=== PATIENT | female | born 1980 | race Native Hawaiian/Other Pacific Islander ===

== ENCOUNTER 2025-05-04 08:01 | Day surgery (SDC) | payer OTHER, SELFPAY ==
[2025-05-04] VITALS (26 sets, daily range): BP systolic 94–134; BP diastolic 67–99; PULSE 59–77; RESP 12–18; TEMP 36.1–37.2; O2SAT 91–98; BMI 41.5
[2025-05-04 08:31] LABS: Ur HCG Qualitative* Negative (Negative)
[2025-05-04] MEDS: ACETAMINOPHEN 500 MG TABLET 1000 MG PO ×3 (08:45→21:49)
[2025-05-04] MEDS: OXYCODONE (CR) 10 MG TAB.ER.12H PO (08:45)
[2025-05-04] MEDS: SODIUM CHLORIDE 0.9 % (FLUSH) 10 ML SYRINGE IVF (08:50)
[2025-05-04] MEDS: LACTATED RINGERS 1000 ML 1,000 ML 100 ML IV ×2 (08:50→13:02)
--- NOTE | 2025-05-04 09:30 | W.PM.H&PU ---
History & Physical Update History & Physical Update H&P Reviewed and patient assessed: No changes noted
--- NOTE | 2025-05-04 09:31 | CRLHL7_ITS ---
For Patients: As a result of the Cures Act, medical imaging exams and procedure reports are released immediately into your electronic medical record. You may view this report before your referring provider. If you have questions, please contact your health care provider. Indication: RT KNEE POST OP Technique: Two views right knee Findings/Impression: Hardware from a right total knee arthroplasty is in satisfactory position. Bone alignment is normal. No sign of acute fracture. Postop changes are within normal limits. Dictated by Joe Jacob MD @ 05/04/2025 3:27:52 PM (Electronically Signed)
[2025-05-04] MEDS: MIDAZOLAM HCL 1 MG/ML inj IVP (10:02)
--- NOTE | 2025-05-04 10:04 | SUR.PREOP ---
TIME?OUT:?1000 PT/RN/MDA?VERIFICATION?OF?SURGICAL?SITE,?PROCEDURE,?AND?CONSENT OBTAINED?PRIOR?TO?INVASIVE?PROCEDURE.
--- NOTE | 2025-05-04 10:33 | P.ANES_ITS ---
Anesthesia Charges Start Date/Time Anesthesia Start Date: 05/04/25 Anesthesia Start Time: 10:30 Stop Date/Time Anesthesia Stop Date: 05/04/25 Anesthesia Stop Time: 12:46 Coding CPT Codes CPT Codes: ANESTH KNEE ARTHROPLASTY - 26116 ([id number]) P3 - PATIENT W/SEVERE SYS DISEASE, QK - OBSTETRICIAN 2-4 CNCRNT ANES PROC, QX - CLERICAL WAREHOUSEMAN SVC W/ MD MED DIRECTION
--- NOTE | 2025-05-04 10:33 | W.ANESCHARGE ---
Anesthesia Charges Start Date/Time Anesthesia Start Date: 05/04/25 Anesthesia Start Time: 10:30 Stop Date/Time Anesthesia Stop Date: 05/04/25 Anesthesia Stop Time: 12:46 Coding CPT Codes CPT Codes: ANESTH KNEE ARTHROPLASTY - 55264 ([id number]) P3 - PATIENT W/SEVERE SYS DISEASE, QK - CARPET INSPECTOR FINISHED 2-4 CNCRNT ANES PROC, QX - GERICARE AIDE SVC W/ MD MED DIRECTION
--- NOTE | 2025-05-04 10:33 | W.PM.NB ---
Nerve Block Nerve Block Time Seen by Provider: 10:00 Date Seen: 05/04/25 Type of block requested by surgeon for post-operative analgesia: adductor canal Side: right Time out performed: Yes Verification of patient name: Yes Verification of date of : Yes Site marking: site marked Name of person performing procedure: Ash Continuous monitoring Was continuous monitoring of O2 sat, B/P, quality assurance monitor body, recorded every 15 minutes?: Yes Procedure Checklist: sterile prep, needles and gloves Ultrasound guided. Images saved: Yes Medications given in 5ml increments after negative aspiration: Marcaine %: 0.25 mL: 15 Needle gauge: 20 Precedex (mcg): 25 Patient tolerated procedure well: Yes Block Charges Block Charge (with Pro Fee): Femoral Nerve Use of Ultrasound Machine for Block: Yes- US Guidance/pain block
--- NOTE | 2025-05-04 10:34 | W.PM.NB ---
Nerve Block Nerve Block Time Seen by Provider: 10:00 Date Seen: 05/04/25 Type of block requested by surgeon for post-operative analgesia: geniculars Side: right Time out performed: Yes Verification of patient name: Yes Verification of date of : Yes Site marking: site marked Name of person performing procedure: Ash Continuous monitoring Was continuous monitoring of O2 sat, B/P, control director, recorded every 15 minutes?: Yes Procedure Checklist: sterile prep, needles and gloves Ultrasound guided. Images saved: Yes Medications given in 5ml increments after negative aspiration: Marcaine %: 0.25 mL: 9 Needle gauge: 25 Patient tolerated procedure well: Yes Block Charges Block Charge (with Pro Fee): Genicular Nerve Block
[2025-05-04] MEDS: TRANEXAMIC ACID 100 MG/ML INJ 1000 MG IV (10:50)
--- NOTE | 2025-05-04 12:44 | P.ANES_ITS ---
Anesthesia Charges Start Date/Time Anesthesia Start Date: 05/04/25 Anesthesia Start Time: 10:30 Stop Date/Time Anesthesia Stop Date: 05/04/25 Anesthesia Stop Time: 12:46 Coding CPT Codes CPT Codes: ANESTH KNEE ARTHROPLASTY - 50597 ([id number]) P3 - PATIENT W/SEVERE SYS DISEASE, QK - ACCOUNTING AUDITOR 2-4 CNCRNT ANES PROC, QX - SUPERVISOR OPEN HEARTH STOCKYARD SVC W/ MD MED DIRECTION
--- NOTE | 2025-05-04 12:44 | W.ANESCHARGE ---
Anesthesia Charges Start Date/Time Anesthesia Start Date: 05/04/25 Anesthesia Start Time: 10:30 Stop Date/Time Anesthesia Stop Date: 05/04/25 Anesthesia Stop Time: 12:46 Coding CPT Codes CPT Codes: ANESTH KNEE ARTHROPLASTY - 32076 ([id number]) P3 - PATIENT W/SEVERE SYS DISEASE, QK - SUEDING MACHINE OPERATOR 2-4 CNCRNT ANES PROC, QX - LINUX PROGRAMMER SVC W/ MD MED DIRECTION
--- NOTE | 2025-05-04 13:06 | SUR.PHASEI ---
Patient awake and alert, no nausea or pain, moving legs and sensation feeling normal.
--- NOTE | 2025-05-04 13:07 | SUR.PHASEI ---
Patient meets discharge criteria from PACU.
[2025-05-04] MEDS: LACTATED RINGERS 1000 ML 1,000 ML 75 ML IV (13:40)
--- NOTE | 2025-05-04 13:52 | P.ORPRC_ITS ---
Procedure Note Date of procedure: 05/04/25 Procedure: PREOPERATIVE DIAGNOSIS: 1. Right knee osteoarthritis, primary, severe POSTOPERATIVE DIAGNOSIS: 1. Right knee osteoarthritis, primary, severe PROCEDURE: 1. Right total knee arthroplasty - subvastus; limited tourniquet; cemented - of note, 33% added time and difficulty of this case including increased implant support with a revision stemmed tibial component due to morbid obesity (BMI 41.5). This also required increased number of retractors, length of retractors, and assistants. SURGEON: Nasir Cornejo MD. PERSONAL LINES APPRAISER: MATTHEW Allred - Of note, a skilled assistant professor of marine biology was critical for this case to aid in patient positioning, tissue retraction, limb manipulation/positioning, and closure. ANESTHESIA: Spinal anesthetic IMPLANTS: DePuy J&J all cemented TKA - Attune PS femur size 6 narrow Size 4 tibia ([id number] stem) 5 mm poly spacer 35 mm patella TOURNIQUET: 30 minutes at 250 torr EBL: 100 mL COMPLICATIONS: None evident INDICATIONS: The patient is a pleasant 44-year-old female who has experienced severe right knee pain and difficulty bearing weight. Workup included x-rays which revealed severe osteoarthrosis in the knee. Given the deformity, the dysfunction, and the pain, as well as the failure of nonoperative management, recommendation was made for surgery. FINDINGS: Significant genu valgum. Reducible to neutral with varus stress. Large effusion upon entering the joint. Severe osteoarthrosis especially in the lateral and patellofemoral but to a lesser degree medial compartment as well. Degenerative meniscus pathology lateral greater than medial. Hypoplastic lateral femoral condyle. DESCRIPTION OF PROCEDURE: Following a thorough discussion of risks, benefits, and alternatives consent was obtained and the right knee was marked. The pat ient was brought to the operating room and placed supine on the operating table. Induction of anesthesia was undertaken. 2 g IV Ancef and 1 g tranexamic acid was administered within 1 hr of incision preoperatively. Proper time-out was performed identifying proper patient, site, procedure. The operative extremity was prepped and draped in the appropriate sterile fashion using ChloraPrep after the patient was positioned supine with all bony prominences well padded. A longitudinal, anterior, midline skin incision was made starting approximately 3cm proximal to the superior pole of the patella and advanced distal to the tibial tubercle. A subvastus approach was utilized. A medial subperiosteal sleeve was created with knife, tai elevator and curved osteotome. The retropatellar fatpad was resected and the synovium in the suprapatellar pouch excised to visualize the anterior femoral cortex. Femoral preparation was performed via an intramedullary guide. Step drill allowed access into the femoral canal. The distal cutting guide was placed with 6? of valgus and 13 mm cut on the distal femur due to a significant valgus deformity. Femur was sized using a posterior referencing guide in 3? of external rotation after cross referencing with trans-epicondylar axis and Jeremias's line. This found have a best fit with the sizing noted above. The 4 in 1 cutting block was then placed, and the distal femur shaped accordingly. The box cut was then created and the trial implant inserted to confirm appropriate fit. We turned our attention to the proximal tibia. Intramedullary guide was utilized for cutting with the goal of being 90 degree cut from the mechanical axis of the tibia in the varus/valgus plane utilizing tibial crest as the primary alignment. Initially a 2 mm resection was performed from the lateral tibial plateau. Ultimately, balancing was achieved in both flexion and extension in both varus and valgus. The knee was able to achieve full extension as well comfortably. The patella was initially measured and found have a thickness of 24 mm. It was resected back to approximately 14 mm. It was sized to be a best fit with as noted above. This was drilled, trial placed. All trials were placed and found to have an excellent stability and balance. At this stage, trial implants were removed, the knee was thoroughly irrigated with normal saline, and the cement was mixed. After irrigation, the knee was thoroughly dried, and cement placed, with the real tibial (including 50 mm stem due to morbid obesity) and femoral implants placed along with the patella. Trial poly spacer was placed and confirmed to have excellent range of motion and full extension, and the real poly spacer opened and inserted. All extra cement was removed, and a 3 min Betadine soak performed. Finally, a final irrigation round with normal saline was performed. Closure performed with 0 Vicryl and #0 Stratafix for the quad tendon/retinaculum. 2-0 Vicryl for the subcutaneous and 4-0 Stratafix for subcuticular closure. Dressings were applied and the patient was awoken from anesthesia after the tourniquet deflated and transferred the PACU in stable condition. A skilled assistant professor of marine biology was critical for this case to aid in patient positioning, tissue retraction, bone exposure, limb manipulation/positioning, patient safety, and closure. Again, 33% added time and difficulty of this case including increased implant support with a revision stemmed tibial component due to morbid obesity (BMI 41.5). This also required increased number of retractors, length of retractors, and assistants. PLAN: 1. Weight bear as tolerated operative extremity. 2. 23 hr perioperative antibiotics. 3. Ice. 4. PT/OT consults for ambulation assistance/mobility education. 5. Social work consult for discharge planning. 6. DVT prophylaxis with at SCDs and aspirin twice daily.
--- NOTE | 2025-05-04 15:11 | PM.IMCN1 ---
Date of Consult Patient: Other Consult date: 05/04/25 Requesting Physician: Orthopedics Primary Care Provider: Daljit Sherwood MD Consult Narrative Reason for consult: Medical management of comorbidities Narrative: Amisha Almaraz is a 44 year old female who presented to the hospital today for an elective R TKA. There were no surgical or anesthetic complications noted during procedure. Patient's H&P reviewed, PCP is Dr. Sherwood at [facility] in [place]. Past medical history significant for: thyroid cancer (s/p thyroidectomy, resultant hypothyroidism), essential HTN Postoperative plan: Home with family Review of Systems Status of ROS: Reports: 10 or more systems reviewed and unremarkable except as noted in History and below [facility] Medical History (Updated 05/04/25 @ 15:25 by Lor Sterling MD) Hypothyroidism (acquired) ?E03.9 - Hypothyroidism, unspecified (ICD-10) Osteoarthritis of right knee ?M17.11 - Unilateral primary osteoarthritis, right knee (ICD-10) Neck pain with neck stiffness after whiplash injury to neck ?S13.4XXA - Sprain of ligaments of cervical spine, initial encounter (ICD-10) Blunt head trauma ?S09.8XXA - Other specified injuries of head, initial encounter (ICD-10) Chronic iron deficiency anemia (2002) ?D50.9 - Iron deficiency anemia, unspecified (ICD-10) Closed head injury ?S09.90XA - Unspecified injury of head, initial encounter (ICD-10) Concussion ?S06.0X9A - Concussion with loss of consciousness of unspecified duration, initial encounter (ICD-10) Dysmenorrhea ?N94.6 - Dysmenorrhea, unspecified (ICD-10) Depressive disorder ?F32.A - Depression, unspecified (ICD-10) Extrinsic asthma ?J45.909 - Unspecified asthma, uncomplicated (ICD-10) Anxiety ?F41.9 - Anxiety disorder, unspecified (ICD-10) Anemia ?D64.9 - Anemia, unspecified (ICD-10) Seizure (01/2021) ?R56.9 - Unspecified convulsions (ICD-10) Malignant neoplasm of thyroid gland (05/30/22) ?C73 - Malignant neoplasm of thyroid gland (ICD-10) History of migraine headaches ?Z86.69 - Personal history of other diseases of the nervous system and sense organs (ICD-10) Surgical History (Updated 05/04/25 @ 15:25 by Lor Sterling MD) Status post right knee replacement ?Z96.651 - Presence of right artificial knee joint (ICD-10) H/O total thyroidectomy ?Z98.890 - Other specified postprocedural states (ICD-10) ?Z90.89 - Acquired absence of other organs (ICD-10) History of arthroscopy of right knee (12/05/21) ?Z98.890 - Other specified postprocedural states (ICD-10) Hx of cholecystectomy ?Z90.49 - Acquired absence of other specified parts of digestive tract (ICD-10) Status post gastric bypass for obesity ?Z98.84 - Bariatric surgery status (ICD-10) Family History Other Diabetes High blood pressure Social History Narrative: Marital Status: Occupation: accounts payable clerk Alcohol Use: Yes What is your current living situation?: I presently have a place to live Problems where you live: no known problems In the past 12 months, utilities in danger of being shut off: no In past 12 months, lack of transportation kept you from medical appts, meetings, work, or getting things needed for daily living: no In the past 12 mos, have been you worried that your food would run out before you had money to buy more?: never true In the past 12 mos, the food you bought just didn't last and you didn't have money to buy more?: never true Highest level of school completed/degree received: some college, no degree Smoking Status: Never smoker Do you use any of these nicotine containing products: None Second hand tobacco smoke exposure: No How often do you have a drink containing alcohol: monthly or less Alcohol type: beer How many standard drinks containing alcohol do you have on a typical day: 1 or 2 How often do you have six or more drinks on one occasion: Never AUDIT-C Alcohol total score: 1 Non-prescribed substance use: denies use Caffeine: Yes How often does anyone, including family, friends and others, physically hurt you: never How often does anyone, including family, friends and others, insult or talk down to you: never How often does anyone, including family, friends and others, threaten you with harm: never How often does anyone, including family, friends and others, scream or curse at you: never service: No Meds Home Medications and Allergies Home Medications ?Medication ?Instructions ?Recorded ?Confirmed ?Type albuterol sulfate 90 mcg/actuation 2 inhalation Q4H PRN 12/23/21 04/17/25 History aerosol inhaler citalopram 20 mg tablet 20 mg PO DAILY 12/23/21 05/04/25 History melatonin 3 mg tablet 3 mg PO .Bedtime as needed PRN 12/23/21 05/04/25 History multivitamin 1 tab PO QAM 12/23/21 05/04/25 History levothyroxine 200 mcg tablet mcg PO DAILY 02/27/25 04/17/25 History levothyroxine 50 mcg tablet 25 - 50 mcg PO DAILY 02/27/25 05/04/25 History tirzepatide 2.5 mg/0.5 mL 2.5 mg subcut QWEEK 04/17/25 05/04/25 History subcutaneous pen injector naproxen 500 mg tablet 500 mg PO BID PRN pain 05/02/25 05/04/25 History tirzepatide (weight loss) 2.5 2.5 mg subcut QWEEK 05/02/25 05/04/25 History mg/0.5 mL subcutaneous pen injector acetaminophen 500 mg capsule 500 - 1,000 mg (1 - 2 x 500 mg) PO 05/04/25 Rx Q6H PRN pain #100 caps amlodipine 5 mg tablet 5 mg PO DAILY 05/04/25 05/04/25 History aspirin 81 mg chewable tablet 81 mg PO BID for DVT prophylaxis 05/04/25 Rx (Aspirin Childrens) 30 days #60 tabs oxycodone 5 mg tablet 2.5 - 5 mg (0.5 - 1 x 5 mg) PO 05/04/25 Rx Q4-6H PRN Pain #42 tabs sennosides 8.6 mg tablet (Senna 17.2 mg (2 x 8.6 mg) PO BID PRN 05/04/25 Rx Lax) constipation #100 tabs Allergies Allergy/AdvReac Type Severity Reaction Status Date / Time lactose Allergy Unknown Verified 05/04/25 08:22 Exam Narrative: Exam Narrative: GEN: Alert and oriented, sitting comfortably in bedside chair HEENT: EOMIs bilaterally, no scleral icterus CV: RRR, No concerning murmurs R: LCTA bilaterally Ext: Wearing bilateral SCDs Skin: No concerning skin lesions or rashes on exposed skin Neuro: Nonfocal Psych: Appropriate Const: Vital Signs, click to edit/add: Vital Signs - 24 hr 05/04/25 08:39 05/04/25 10:02 05/04/25 10:11 Temperature 97.7 F Pulse Rate 69 70 70 Pulse Rate [Right Pulse Oximeter] Respiratory Rate 16 16 16 Blood Pressure 134/94 H 129/97 H 133/99 H Blood Pressure [Le ft Arm] Pulse Oximetry 96 97 97 Oxygen Delivery Me thod Room Air Nasal Cannula Nasal Cannula Oxygen Flow Rate 2 2 05/04/25 10:15 05/04/25 10:20 05/04/25 10:25 Temperature Pulse Rate 70 70 70 Pulse Rate [Right Pulse Oximeter] Respiratory Rate 16 16 16 Blood Pressure 129/93 H 126/92 H 129/92 H Blood Pressure [Le ft Arm] Pulse Oximetry 98 98 98 Oxygen Delivery Me thod Nasal Cannula Nasal Cannula Nasal Cannula Oxygen Flow Rate 2 2 2 05/04/25 12:41 05/04/25 12:45 05/04/25 12:50 Temperature 97.6 F Pulse Rate 77 75 70 Pulse Rate [Right Pulse Oximeter] Respiratory Rate 14 18 16 Blood Pressure 94/67 102/74 106/89 Blood Pressure [Le ft Arm] Pulse Oximetry 95 95 92 Oxygen Delivery Me thod Room Air Oxygen Flow Rate 0 05/04/25 12:55 05/04/25 13:00 05/04/25 13:05 Temperature Pulse Rate 68 70 65 Pulse Rate [Right Pulse Oximeter] Respiratory Rate 16 15 14 Blood Pressure 116/82 119/99 H 118/85 Blood Pressure [Le ft Arm] Pulse Oximetry 96 92 91 Oxygen Delivery Me thod Room Air Oxygen Flow Rate 0 05/04/25 13:12 05/04/25 13:22 05/04/25 13:30 Temperature 98.2 F 97.9 F 98 F Pulse Rate 68 Pulse Rate [Right Pulse Oximeter] 64 59 L Respiratory Rate 16 16 16 Blood Pressure 110/86 Blood Pressure [Le ft Arm] 124/92 H 126/82 Pulse Oximetry 92 92 97 Oxygen Delivery Me thod Room Air Room Air Room Air Oxygen Flow Rate 0 0 05/04/25 13:45 05/04/25 14:00 05/04/25 14:15 Temperature 98.5 F 98.6 F 98.6 F Pulse Rate Pulse Rate [Right Pulse Oximeter] 62 67 69 Respiratory Rate 16 16 14 Blood Pressure Blood Pressure [Le ft Arm] 120/84 117/83 121/84 Pulse Oximetry 94 93 93 Oxygen Delivery Me thod Room Air Room Air Room Air Oxygen Flow Rate 0 0 0 05/04/25 14:58 05/04/25 14:58 05/04/25 14:58 Temperature Pulse Rate Pulse Rate [Right Pulse Oximeter] Respiratory Rate 14 Blood Pressure Blood Pressure [Le ft Arm] Pulse Oximetry 93 93 Oxygen Delivery Me thod Room Air Oxygen Flow Rate Assessment and Plan Assessment and plan (1) Hypothyroidism (acquired): Status: Acute (2) Status post right knee replacement: Problem comment: - 05/04/25, Dr. Cornejo Status: Acute Plan - pain management and prophylaxis per orthopedic surgery team - continue home medications for comorbidities - anticipate routine postoperative course
[2025-05-04] MEDS: CEFAZOLIN 2 GM in 0.9 % SODIUM CHLORIDE Mini-bag 100 ML IVPB (16:54)
--- NOTE | 2025-05-04 18:52 | PC.NURSE ---
End of Shift: Patient pleasant and cooperative. Patient vitally stable, lungs clear, BS WNL, IV SL and intact. Patient right knee dressing C/D/I. Patient rates knee pain at most 5/10, scheduled tylenol given and 5 mg of oxy given x2. Patient has urinated(has menses) and tolerating regular diet. Patient was up to chair for dinner and walked the [place] this evening. Patient is SBA/walker.
[2025-05-04] MEDS: SENNOSIDES 1 TAB TABLET 2 TAB PO (21:50)
[2025-05-04] MEDS: ASPIRIN 81 MG TABLET EC PO (21:51)
[2025-05-05] MEDS: CEFAZOLIN 2 GM in 0.9 % SODIUM CHLORIDE Mini-bag 100 ML IVPB ×2 (00:31→08:27)
[2025-05-05 01:49] VITALS: BP 115/73; PULSE 64; RESP 16; TEMP 36.2; O2SAT 95
[2025-05-05] MEDS: ACETAMINOPHEN 500 MG TABLET 1000 MG PO ×2 (04:24→09:26)
--- NOTE | 2025-05-05 04:50 | PC.NURSE ---
Patient ambulates with SBA, gait belt, and walker. Patient utilizing scheduled and prn medications for effective pain management. Dressing to Right knee clean dry and intact. Active ice applied throughout shift, antibiotics received as ordered, VSS, PIV patent.
[2025-05-05] MEDS: LEVOTHYROXINE 50 MCG TABLET PO (06:19)
[2025-05-05 07:00] VITALS: O2SAT 97
[2025-05-05 08:24] VITALS: BP 104/88; PULSE 63; RESP 16; TEMP 36.3; O2SAT 97
[2025-05-05] MEDS: SENNOSIDES 1 TAB TABLET 2 TAB PO (08:26)
[2025-05-05] MEDS: AMLODIPINE 5 MG TABLET PO (08:26)
[2025-05-05] MEDS: ASPIRIN 81 MG TABLET EC PO (08:26)
[2025-05-05] MEDS: CITALOPRAM HYDROBROMIDE 20 MG TABLET PO (08:27)
[2025-05-05 11:05] VITALS: BP 125/89; PULSE 62; RESP 16; TEMP 36.3; O2SAT 97
--- NOTE | 2025-05-05 12:48 | PM.ORPN ---
Subjective Subjective Time Seen by Provider: 07:15 Date Seen: 05/05/25 Principal diagnosis: Status post right knee replacement Interval history: Amisha is comfortable at rest this morning. She is tolerating oxycodone. She will discharge to home today. Ortho Exam Narrative Exam Narrative: Alert and oriented x3. Patient is in no acute distress. Converses without labored breathing. Hearing is grossly intact. Ambulates with a walker. Examination of the right knee shows the dressing is intact. No erythema or warmth or sign of infection. Calves are soft and nontender. She is able to straight leg raise. CMS intact right lower extremity. Const Vital Signs, click to edit/add: Vital Signs - 24 hr 05/04/25 12:50 05/04/25 12:55 05/04/25 13:00 Temperature Pulse Rate 70 68 70 Pulse Rate [Right Pulse Oximeter] Respiratory Rate 16 16 15 Blood Pressure 106/89 116/82 119/99 H Blood Pressure [Left Arm] Pulse Oximetry 92 96 92 Oxygen Delivery Method Room Air Oxygen Flow Rate 0 05/04/25 13:05 05/04/25 13:12 05/04/25 13:22 Temperature 98.2 F 97.9 F Pulse Rate 65 68 Pulse Rate [Right Pulse Oximeter] 64 Respiratory Rate 14 16 16 Blood Pressure 118/85 110/86 Blood Pressure [Left Arm] 124/92 H Pulse Oximetry 91 92 92 Oxygen Delivery Method Room Air Room Air Oxygen Flow Rate 0 05/04/25 13:30 05/04/25 13:45 05/04/25 14:00 Temperature 98 F 98.5 F 98.6 F Pulse Rate Pulse Rate [Right Pulse Oximeter] 59 L 62 67 Respiratory Rate 16 16 16 Blood Pressure Blood Pressure [Left Arm] 126/82 120/84 117/83 Pulse Oximetry 97 94 93 Oxygen Delivery Method Room Air Room Air Room Air Oxygen Flow Rate 0 0 0 05/04/25 14:15 05/04/25 14:58 05/04/25 14:58 Temperature 98.6 F Pulse Rate Pulse Rate [Right Pulse Oximeter] 69 Respiratory Rate 14 14 Blood Pressure Blood Pressure [Left Arm] 121/84 Pulse Oximetry 93 93 Oxygen Delivery Method Room Air Oxygen Flow Rate 0 05/04/25 14:58 05/04/25 15:18 05/04/25 16:15 Temperature 98.5 F 98.4 F Pulse Rate Pulse Rate [Right Pulse Oximeter] 69 66 Respiratory Rate 12 14 Blood Pressure Blood Pressure [Left Arm] 112/88 125/83 Pulse Oximetry 93 95 93 Oxygen Delivery Method Room Air Room Air Room Air Oxygen Flow Rate 0 0 05/04/25 17:15 05/04/25 18:15 05/04/25 19:00 Temperature 98.9 F 97.8 F 97.0 F L Pulse Rate Pulse Rate [Right Pulse Oximeter] 77 76 72 Respiratory Rate 16 14 16 Blood Pressure Blood Pressure [Left Arm] 122/77 108/76 119/82 Pulse Oximetry 93 93 93 Oxygen Delivery Method Room Air Room Air Room Air Oxygen Flow Rate 0 0 0 05/04/25 19:15 05/04/25 23:00 05/04/25 23:00 Temperature 98.9 F Pulse Rate Pulse Rate [Right Pulse Oximeter] 72 72 Respiratory Rate 16 16 Blood Pressure Blood Pressure [Left Arm] 118/67 Pulse Oximetry 93 93 Oxygen Delivery Method Room Air Oxygen Flow Rate 0 05/04/25 23:00 05/04/25 23:00 05/04/25 23:00 Temperature 98.9 F 97.1 F L Pulse Rate Pulse Rate [Right Pulse Oximeter] 72 72 Respiratory Rate 16 16 16 Blood Pressure Blood Pressure [Left Arm] 118/67 129/89 Pulse Oximetry 93 93 97 Oxygen Delivery Method Room Air Room Air Room Air Oxygen Flow Rate 0 0 0 05/05/25 01:49 05/05/25 07:00 05/05/25 07:00 Temperature 97.1 F L Pulse Rate Pulse Rate [Right Pulse Oximeter] 64 Respiratory Rate 16 Blood Pressure Blood Pressure [Left Arm] 115/73 Pulse Oximetry 95 97 97 Oxygen Delivery Method Room Air Room Air Oxygen Flow Rate 0 05/05/25 08:24 05/05/25 11:05 Temperature 97.4 F L 97.4 F L Pulse Rate Pulse Rate [Right Pulse Oximeter] 63 62 Respiratory Rate 16 16 Blood Pressure Blood Pressure [Left Arm] 104/88 125/89 Pulse Oximetry 97 97 Oxygen Delivery Method Room Air Room Air Oxygen Flow Rate Assessment and Plan Assessment and plan (1) Status post right knee replacement: Problem details: - 05/04/25, Dr. Cornejo Status: Acute Assessment and Plan: Amisha is comfortable at this time. She is tolerating the oxycodone. We discussed that there is possibly lactose in oxycodone as the medication was flagged as I sent to her pharmacy. She states she has been doing just fine on it thus far. If she has any problems, she will contact us. Plan for discharge is today to home if they meet discharge criteria. DVT prophylaxis includes aspirin 81 mg twice daily x1 month, Compression stockings as needed for swelling. Frequent ambulation, every hour throughout the day. Remove dressing in 1 week. Observe wound and phone Orthopedics with any questions or concerns Return to clinic in 1-2 weeks for a wound check as scheduled Return to clinic in 6 weeks with surgeon Minimize narcotic use. Wean off and discontinue soon as possible. Activities as tolerated. No strenuous activity. Outpatient physical therapy as scheduled. Ice and elevate the operative extremity. No restriction on ice.
--- NOTE | 2025-05-05 14:02 | PC.NURSE ---
Pt doing well today. VSS. Pain controlled with scheduled tylenol, prn oxy, ice and elevation. Pt is ambulatin well with walker. Surgical dressing remain clean, dry and intact. Pt belongings and discharge instructions signed, for questions or concerns at this time. Pt discharged home at 1200 via .
== END 2025-05-05 12:00 | disposition home or self-care (01) ==
LOC: OR 08:03 → MEDSURG 08:04
PROVIDERS: Anesthesiology; PCP Family Medicine; Visit Provider Orthopaedic Surgery Sports Medicine
PROC: (CPT 27447; principal; 2025-05-04 10:15)
DX: M17.11 Unilateral primary osteoarthritis, right knee (principal); G89.18 Other acute postprocedural pain; E66.01 Morbid (severe) obesity due to excess calories; Z68.41 Body mass index [BMI] 40.0-44.9, adult; I10 Essential (primary) hypertension; Z85.850 Personal history of malignant neoplasm of thyroid; E89.0 Postprocedural hypothyroidism; Z98.84 Bariatric surgery status; Z79.85 Long-term (current) use of injectable non-insulin antidiabetic drugs; Z79.82 Long term (current) use of aspirin
CPT/HCPCS: 27447; 01402; 64447; 64454; 73560; 76942; 81025; 97110; 97116; 97161; 97165; 97530; 97535; A9270; C1776; J0665; J0690; J1100; J2250; J2405; J2704; J3010; J7120